=== PATIENT | female | born 1990 | race Caucasian/White ===

== ENCOUNTER → 2017-05-09 | Outpatient (CLI) | payer BC ==
[~2017-05-09] MED LIST: IBP600T1 PO
--- NOTE | 2017-05-09 17:06 | Diagnostic Imaging Report ---
INDICATION: Size and dates. TECHNIQUE: Multiple real-time grayscale images were obtained over the gravid uterus. COMPARISON: None. FINDINGS: Variable positioning of a saunders viable IUP is demonstrated. The biometrical measurements are congruent and correlate with an average age 20 weeks 6 days, reflecting normal growth from prior. The placenta is fundal with no abruption or previa and the volume of amniotic fluid appeared normal. There was no pathological finding at the anatomical survey however there is limited visualization of the four-chambered heart. IMPRESSION: Saunders gestation measures 20 week 6 days in variable position. Fundal placenta with no abruption or previa. Normal appearance of the cervix. No abnormality at the anatomical survey however position limits assessment of the heart. Biometrical measurements are as follows: Biparietal 4.83 cm, age 20 weeks 5 days. Head circumference 18.15 cm, age 20 weeks 4 days. Abdominal circumference 16.63 cm, age 21 weeks 5 days. Femur length 3.19 cm, age 20 weeks 0 days. Sonographic estimate age: 20 weeks 6 days. Sonographic estimated date of delivery: 09/20/2017. Estimated Weight: 380 gm (+/- 56 gm). LMP percentile: 76%. heart rate: 167 beats per minute. number: 1 of 1. Dictated by: Dictated on workstation # [id number]
== END ==
LOC: RAD 16:00
PROVIDERS: ATTEND Obstetrics & Gynecology
DX: Z34.92 Encounter for supervision of normal pregnancy, unspecified, second trimester (principal); Z3A.20 20 weeks gestation of pregnancy
CPT/HCPCS: 76805

== ENCOUNTER → 2017-08-17 | Outpatient (CLI) | payer BC ==
--- NOTE | 2017-08-17 17:58 | Diagnostic Imaging Report ---
Exam: Ultrasound OB limited. Date: 08/17/2017. Indication: 27-year-old female, discrepancy of size and dates. Comparison: 05/09/2017. Findings: There is an unremarkable four-chamber view of the heart. heart rate is identified at 129 beats per minute. The amniotic fluid index is measured at 20.5. The stomach is visualized. The placenta is anterior and without demonstrated previa. The cervical length is measured at 4.4 cm. Biometrical measurements are as follows: Biparietal 9.22 cm, age 37 weeks 4 days. Head circumference 32.97 cm, age 37 weeks 4 days. Abdominal circumference 32.18 cm, age 36 weeks 1 days. Femur length 6.51 cm, age 33 weeks 4 days. Sonographic estimate age: 36 weeks 2 days. Sonographic estimated date of delivery: 09/12/2017. Estimated Weight: 2755 gm (+/- 402 gm). LMP percentile: 79%. heart rate: 129 beats per minute. number: 1 of 1. IMPRESSION: 1. Single living intrauterine with measurements as above. 2. Normal amniotic fluid index. 3. Unremarkable four-chamber view of the heart. The stomach is visualized. There is otherwise limited assessment of anatomy. Dictated by: Dictated on workstation # [id number]
== END ==
LOC: RAD 16:56
PROVIDERS: ATTEND Obstetrics & Gynecology
DX: Z36.2 Encounter for other antenatal screening follow-up (principal); O26.843 Uterine size-date discrepancy, third trimester; Z3A.36 36 weeks gestation of pregnancy
CPT/HCPCS: 76816

== ENCOUNTER 2017-10-02 11:56 | Inpatient (IN) | payer BC ==
[2017-10-02] VITALS (13 sets, daily range): BP systolic 119–151; BP diastolic 74–94
[~2017-10-02] VITALS: Ht 165.1 cm; Wt 95.8 kg
[2017-10-02] MEDS ORDERED: BUTORPHANOL INJ 2 MG/ML (STADOL) VIAL IV ONE (12:30)
[2017-10-02] MEDS ORDERED: D5 LR IV SOLUTION 1,000 ML IV SCH ×2 (12:32→13:50)
[2017-10-02] MEDS ORDERED: LIDOCAINE/EPI 2% 1:200,00 (XYLOCAINE) 10 ML VIAL ONE (12:35)
[2017-10-02] MEDS ORDERED: OXYTOCIN/NORMAL SALINE 500 ML IV ONE (12:35)
[2017-10-02 12:43] LABS: BASOPHILS % (AUTO) 0 % (0-10); EOSINOPHILS % (AUTO) 0 % (0-10); HEMATOCRIT 35 % (35-52); HEMOGLOBIN 12.5 G/DL (11.5-16.0); LYMPHOCYTES # (AUTO) 1.7 X 10^3 (1.0-4.0); LYMPHOCYTES % (AUTO) 9 % (12-44); MEAN CORPUSCULAR HEMOGLOBIN 33 PG (25-34); MEAN CORPUSCULAR HGB CONC 35 G/DL (32-36); MEAN CORPUSCULAR VOLUME 92 FL (80-99); MEAN PLATELET VOLUME 10.6 FL (7.4-10.4); MONOCYTES # (AUTO) 1.1 X 10^3 (0.0-1.0); MONOCYTES % (AUTO) 6 % (0-12); NEUTROPHILS # (AUTO) 15.4 X 10^3 (1.8-7.8); NEUTROPHILS % (AUTO) 85 % (42-75); PLATELET COUNT 162 10^3/uL (130-400); RED BLOOD COUNT 3.83 10^6/uL (4.35-5.85); RED CELL DISTRIBUTION WIDTH 13.9 % (10.0-14.5); WHITE BLOOD COUNT 18.2 10^3/uL (4.3-11.0)
--- OUTSIDE RECORDS SUMMARY | 2017-10-02 12:48 | XMS REPORT ---
Author Author Joaquín Barron [facility] Address [address] [place], [place] [id number] Care Team Providers Care Brisket Puller Name Role Phone Joaquín Barron PCP Allergies and Adverse Reactions Name Reaction Notes NO KNOWN DRUG ALLERGIES Plan of Treatment Not available. Medications Active Name Start Date Estimated Completion Date SIG Comments TriNessa (28) 0.18/0.215/0.25 mg-35 mcg (28) oral tablet take 1 tablet by oral route once daily Name Start Date Expiration Date SIG Comments Zithromax Z-Jimy 250 mg oral tablet 04/12/2014 04/17/2014 take 2 tablets ( 500 mg) by oral route once daily for 1 day then 1 tablet (250 mg) by oral route once daily for 4 days Zofran ODT 4 mg oral tablet,disintegrating 03/10/2016 03/13/2016 dissolve 1 tablet by oral route every 8 hours for 3 days Discontinued Name Start Date Discontinued Date SIG Comments albuterol sulfate 90 mcg/actuation inhalation HFA aerosol inhaler 04/12/2014 03/10/2016 inhale 1 - 2 puffs by inhalation route every 4-6 hours as needed Tessalon Perles 100 mg oral capsule 04/12/2014 03/10/2016 take 1 capsule ( 100 mg) by oral route every 4 hours as needed Problem List Not available. Vital Signs Date Time BP-Sys(mm[Hg] BP-Myriam(mm[Hg]) HR(bpm) RR(rpm) Temp WT HT HC BMI BSA BMI Percentile O2 Sat(%) 03/10/2016 5:50:00 PM 126 mmHg 66 mmHg 78 bpm 18 rpm 98.3 F 173.375 lbs 65 in 28.85 kg/m2 1.90 m2 98 % 04/12/2014 5:22:00 PM 115 mmHg 80 mmHg 96 bpm 18 rpm 99 F 165.375 lbs 97 % Social History Name Description Comments Tobacco Never smoker History of Procedures Date Ordered Description Order Status 03/10/2016 12:00 AM COMPLETE CBC W/AUTO DIFF WBC Returned 03/10/2016 12:00 AM COMPREHEN METABOLIC PANEL Returned 03/10/2016 12:00 AM ASSAY OF AMYLASE Returned 03/10/2016 12:00 AM ASSAY OF LIPASE Returned 03/10/2016 12:00 AM CHORIONIC GONADOTROPIN ASSAY Returned 03/11/2016 12:00 AM ECHO EXAM OF ABDOMEN Returned Results Summary Data and Description Results 03/10/2016 6:30 PM WBC 7.6 RBC 4.46 HGB 13.70 g/dLHCT 39.90 %MCV 90.0 fLMCH 30.70 pgMCHC 34.30 g/dLRDW CV 12.30 %MPV 10.0 fLPLT 260 %NEUT 55.20 %%LYMP 35.30 %%MONO 6.90 %%EOS 1.60 %%BASO 0.90 %#NEUT 4.21 #LYMP 2.69 #MONO 0.53 #EOS 0.12 #BASO 0.07 GLUCOSE 87.0 mg/dLSODIUM 140.0 mmol/LPOTASSIUM 3.70 mmol/ LCHLORIDE 106.0 mmol/LCO2 23.0 mmol/LBUN 11.0 mg/dLCREATININE 0.90 mg/dLSGOT/ AST 22.0 IU/LSGPT/ALT 20.0 IU/LALK PHOS 67.0 IU/LTOTAL PROTEIN 7.50 g/dLALBUMIN 4.50 g/dLTOTAL BILI 0.40 mg/dLCALCIUM 9.70 mg/dLeGFR >60 mL/min/1.73mLIPASE 34.0 U/LAMYLASE 62 IU/L History Of Immunizations Not available. History of Past Illness Name Date of Onset Comments *No known medical problems URI (upper respiratory infection) Apr 12 2014 5:24PM RUQ pain Mar 10 2016 5:52PM Right upper quadrant abdominal pain Mar 11 2016 1:03PM Payers Insurance Name Company Name Plan Name Plan Number Policy Number Policy Group Number [id number] N/A History of Encounters Visit Date Visit Type Provider 03/10/2016 Office visit Joaquín Barron APRN 04/12/2014 Office visit Davidson Mckinnon PA-C
--- OUTSIDE RECORDS SUMMARY | 2017-10-02 12:49 | XMS REPORT ---
Author Roxanna Erazo [facility] Address [address] [place], [place] [id number] Care Team Providers Care Wheel Filler Name Role Phone Roxanna Zimmer PCP Unavailable Allergies and Adverse Reactions Name Reaction Notes NO KNOWN DRUG ALLERGIES Plan of Treatment Planned Activity Comments Planned Date Planned Time Plan/Goal Gallbladder Medications Active Name Start Date Estimated Completion [...] HC BMI BSA BMI Percentile O2 Sat(%) 03/18/2016 10:47:00 AM 126 mmHg 72 mmHg 72 bpm 18 rpm 97.8 F 175.125 lbs 65 in 29.14 kg/m2 1.91 m2 97 % 03/10/2016 5:50:00 PM 126 mmHg 66 mmHg 78 bpm 18 rpm 98.3 F 173.375 lbs 65 in 28.8508 kg/m 1.8991 m 98 % 04/12/2014 5:22:00 PM 115 mmHg [...] quadrant abdominal pain Mar 11 2016 1:03PM Calculus of gallbladder without cholecystitis without obstruction Mar 18 2016 10:48AM Payers Insurance Name Company Name Plan Name Plan Number Policy Number Policy Group Number Start Date [id number] N/A History of Encounters Visit Date Visit Type Provider 03/18/2016 Office visit Roxanna Zimmer PROJECT MANAGER SENIOR 03/10/2016 Office visit Joaquín Barron PROJECT MANAGER SENIOR 04/12/2014 Office visit Davidson Mckinnon PA-C
--- OUTSIDE RECORDS SUMMARY | 2017-10-02 12:49 | XMS REPORT | Continuity of Care Document ---
Author Author [facility] Organization [facility] Address Unknown Phone Unavailable Allergies Active Description Code Type Severity Reaction Onset Reported/Identified Relationship to Patient Clinical Status Yes No Known Drug Allergies [id number] Drug Allergy Unknown N/A 05/19/2010 Medications There is no data. Problems Date Dx Coded Attending Type Code Diagnosis Diagnosed By 05/31/2012 Ot 008.8 VIRAL ENTERITIS NOS 05/31/2012 Ot 647.81 INFECT DIS NEC-DELIVERED 05/31/2012 Ot 648.91 OTH CURR COND-DELIVERED 05/31/2012 Ot 663.31 CORD ENTANGLE NEC-DELIV 05/31/2012 Ot 664.01 DEL W 1 DEG LACERAT-DEL 05/31/2012 Ot V02.51 GROUP B STREPT CARRIER/SUSPECTED CARRIER 05/31/2012 Ot V27.0 DELIVER- SINGLE LIVEBORN 05/19/2017 GINGER BATISTA DO Ot Z34.92 ENCNTR FOR SUPRVSN OF NORMAL PREG, UNSP, 05/19/2017 GINGER BATISTA DO Ot Z3A.20 20 WEEKS GESTATION OF 08/18/2017 GINGER BATISTA DO Ot O26.843 UTERINE SIZE-DATE DISCREPANCY, THIRD TRI 08/18/2017 GINGER BATISTA DO Ot Z36.2 ENCOUNTER FOR OTHER SCREENING 08/18/2017 GINGER BATISTA DO Ot Z3A.36 36 WEEKS GESTATION OF 09/14/2017 GINGER BATISTA DO Ot O26.843 UTERINE SIZE-DATE DISCREPANCY, THIRD TRI 09/14/2017 GINGER BATISTA DO Ot Z36.2 ENCOUNTER FOR OTHER SCREENING 09/14/2017 GINGER BATISTA DO Ot Z3A.36 36 WEEKS GESTATION OF 09/30/2017 GINGER BATISTA DO Ot Z34.92 ENCNTR FOR SUPRVSN OF NORMAL PREG, UNSP, 09/30/2017 GINGER BATISTA DO Ot Z3A.20 20 WEEKS GESTATION OF 09/30/2017 GINGER BATISTA DO Ot O26.843 UTERINE SIZE-DATE DISCREPANCY, THIRD TRI 09/30/2017 GINGER BATISTA DO Ot Z36.2 ENCOUNTER FOR OTHER SCREENING 09/30/2017 GINGER BATISTA DO Ot Z3A.36 36 WEEKS GESTATION OF Procedures Code Description Performed By Performed On 75.69 REPAIR OB LACERATION NEC 05/29/2012 Results There is no data. Encounters ACCT No. Visit Date/Time Discharge Status Pt. Type Provider Facility Loc./Unit Complaint [id number] 04/15/2016 14:19:53 04/15/2016 23:59:59 CLS Outpatient Colt Lopez [id number] 04/13/2016 11:55:51 04/13/2016 23:59:59 CLS Outpatient Colt Lopez [id number] 03/22/2016 11:12:12 03/22/2016 23:59:59 CLS Outpatient Colt Lopez [id number] 03/18/2016 11:39:17 03/18/2016 23:59:59 CLS Outpatient Roxanna Zimmer [id number] 03/10/2016 18:50:31 03/10/2016 23:59:59 CLS Outpatient Joaquín Barron [id number] 04/12/2014 18:24:58 04/12/2014 23:59:59 CLS Outpatient Davidson Mckinnon [id number] 08/17/2017 16:56:00 08/17/2017 23:59:59 CLS Outpatient GINGER BATISTA DO [facility] RAD O26.849 DISCREPANCY BETWEEN SIZE AND DATES [id number] 05/09/2017 16:00:00 05/09/2017 23:59:59 CLS Outpatient GINGER BATISTA DO [facility] RAD SURVEY [id number] 10/03/2017 20:00:00 PEN Preadmit GINGER BATISTA DO INDUCTION [id number] 05/29/2012 06:06:00 Document Registration
--- OUTSIDE RECORDS SUMMARY | 2017-10-02 12:49 | XMS REPORT | CCD ---
Author Author CANDACE POE Organization Unknown Address [address] [place] [address] Care Team Providers Care World Travel Counselor Name Role Phone SALINA SALMERON, DYLON Payan Attphys Allergies Allergy Code Allergy Type Reaction Status No Known Drug Allergies 0 Drug allergy Active Active Medications No Active Medications Problems Unknown or Not Available. Procedures Procedure Code Procedure Type Date Laparoscopy, surgical; cholecystectomy with cholangiography 51914 CPT 04/02/2016 OPERATIVE CHOLANGIOGRAM 48863466 SNOMED CT 04/02/2016 PATHOLOGY ORDER [id number] SNOMED CT 04/02/2016 TEST URINE [id number] SNOMED CT 04/02/2016 Results TEST URINE - Collect Date/Time: 04/02/2016 11:30 Test Name Code Test Result Test Units Test Ref Range TEST UR 2106-3 NEGATIVE N/A Function Status Unknown or Not Available. History of Immunizations Unknown or Not Available. Plan of Treatment Unknown or Not Available. Social History Smoking Status Code Start Date End Date Never smoker [id number] Vital Signs Vital Sign Value Unit Date/Time Recent/Initial? Weight Measured 168 [lb_av] 04/01/2016 08:56 Initial VS Height 65 [in_i] 04/01/2016 08:56 Initial VS BMI (Body Mass Index) 27.96 kg/m2 04/01/2016 08:56 Initial VS BSA (Body Surface Area) 1.87 m2 04/01/2016 08:56 Initial VS Respiratory Rate 16 /min 04/02/2016 14:45 Initial VS Heart Rate 95 /min 04/02/2016 14:45 Initial VS O2 % BldC Oximetry 100 % 04/02/2016 14:45 Initial VS BP Systolic 128 mm[Hg] 04/02/2016 14:53 Initial VS BP Diastolic 80 mm[Hg] 04/02/2016 14:53 Initial VS BP Systolic 114 mm[Hg] 04/02/2016 15:14 Most Recent VS BP Diastolic 71 mm[Hg] 04/02/2016 15:14 Most Recent VS Respiratory Rate 13 /min 04/02/2016 15:14 Most Recent VS Heart Rate 84 /min 04/02/2016 15:14 Most Recent VS O2 % BldC Oximetry 99 % 04/02/2016 15:14 Most Recent VS Function Status Unknown or Not Available. Goals Unknown or Not Available. ASSESSMENTS Unknown or Not Available. Health Concerns Section Unknown or Not Available.
--- OUTSIDE RECORDS SUMMARY | 2017-10-02 12:49 | XMS REPORT ---
Author Author Joaquín Barron [facility] Address [address] [place], [place] [address] Care Team Providers Care Strategic Debriefing Specialist Name Role Phone Joaquín Barron PCP Allergies and Adverse Reactions Name Reaction Notes NO KNOWN DRUG ALLERGIES Plan of Treatment Planned Activity Comments Planned Date Planned Time Plan/Goal ECHO EXAM OF ABDOMEN 03/11/2016 12:00 AM Medications Active Name Start Date Estimated Completion Date SIG Comments TriNessa (28) 0.18/0.215/0.25 mg-35 mcg (28) oral tablet take 1 tablet by oral route once daily Zofran ODT 4 mg oral tablet,disintegrating 03/10/2016 03/13/2016 dissolve 1 tablet by oral route every 8 hours for 3 days Name Start Date Expiration Date SIG Comments Zithromax Z-Jimy 250 mg oral tablet 04/12/2014 04/17/2014 take 2 tablets ( 500 mg) by oral route once daily for 1 day then 1 tablet (250 mg) by oral route once daily for 4 days Discontinued Name Start Date Discontinued Date [...] 03/10/2016 12:00 AM CHORIONIC GONADOTROPIN ASSAY Returned Results Summary Data and Description Results [...] Policy Number Policy Group Number [id number]A History of Encounters Visit Date Visit Type Provider 03/10/2016 Office visit Joaquín Barron APRN 04/12/2014 Office visit Davidson Mckinnon PA-C
--- OUTSIDE RECORDS SUMMARY | 2017-10-02 12:49 | XMS REPORT ---
Author Roxanna Erazo [facility] Address [address] [place], [place] [phone] Care Team Providers Care Dot Compliance Specialist Name Role Phone Roxanna Zimmer PCP Unavailable [...] of Procedures Date Ordered Description Order Status 03/11/2016 12:00 AM ECHO EXAM OF ABDOMEN Returned 03/10/2016 12:00 AM COMPLETE CBC W/AUTO DIFF [...] cholecystitis without obstruction Mar 18 2016 10:48AM Nausea Mar 10 2016 5:52PM Payers Insurance Name Company Name Plan Name Plan Number Policy Number Policy Group Number Start Date [id number] N/A History of Encounters Visit Date Visit Type Provider 03/18/2016 Office visit Roxanna Zimmer HOUSE REPAIRER 03/10/2016 Office visit Joaquín Barron HOUSE REPAIRER 04/12/2014 Office visit Davidson Mckinnon PA-C
--- OUTSIDE RECORDS SUMMARY | 2017-10-02 12:49 | XMS REPORT ---
Author Colt Luevano [facility] Address [address] [place], [place] [address] Care Team Providers Care Cosmetic Surgeon Name Role Phone Colt Lopez PCP Unavailable Allergies and Adverse Reactions Name Reaction Notes NO KNOWN DRUG ALLERGIES Plan of Treatment Planned Activity Comments Planned Date Planned Time Plan/Goal COMPREHEN METABOLIC PANEL 04/02/2016 12:00 AM COMPLETE CBC W/AUTO DIFF WBC 04/02/2016 12:00 AM Gallbladder Medications Active Name Start Date Estimated [...] HC BMI BSA BMI Percentile O2 Sat(%) 03/22/2016 10:47:00 AM 124 mmHg 86 mmHg 83 bpm 16 rpm 96.6 F 174 lbs 65 in 28.95 kg/m2 1.90 m2 98 % 03/18/2016 10:47:00 AM 126 mmHg 72 mmHg 72 bpm 18 rpm 97.8 F 175.125 lbs 65 in 29.142 kg/m 1.9087 m 97 % 03/10/2016 5:50:00 PM 126 mmHg [...] 2016 10:48AM Nausea Mar 10 2016 5:52PM Cholelithiasis Mar 22 2016 10:47AM Chronic Cholecystitis Mar 22 2016 10:47AM Payers Insurance Name Company Name Plan Name Plan Number Policy Number Policy Group Number Start Date BCBS [facility] [id number] N/A History of Encounters Visit Date Visit Type Provider 03/22/2016 Office visit 03/22/2016 Office visit 03/22/2016 Office visit Colt Lopez MD 03/18/2016 Office visit Roxanna Zimmer APRN 03/10/2016 Office visit Joaquín Barron APRN 04/12/2014 Office visit Davidson Mckinnon PA-C
--- OUTSIDE RECORDS SUMMARY | 2017-10-02 12:49 | XMS REPORT ---
Author Author Joaquín Barron [facility] Address [address] [place], [place] [address] Care Team Providers Care Wet Process Head Miller Name Role Phone Joaquín Barron PCP Allergies [...] Policy Number Policy Group Number [id number] N/A History of Encounters Visit Date Visit Type Provider 03/10/2016 Office visit Joaquín Barron APRN 04/12/2014 Office visit Davidson Mckinnon PA-C
--- OUTSIDE RECORDS SUMMARY | 2017-10-02 12:49 | XMS REPORT ---
Author Colt Luevano [facility] Address [address] [place], [place] [address] Care Team Providers Care Cesspool Cleaner Name Role Phone Colt Lopez PCP Unavailable [...] mg/dLeGFR >60 mL/min/1.73mLIPASE 34.0 U/LAMYLASE 62 IU/L 04/02/2016 11:30 AM TEST UR NEGATIVE History Of Immunizations Not available. History of [...] 10:47AM Chronic Cholecystitis Mar 22 2016 10:47AM Postoperative Follow-up: Cholecystectomy Apr 13 2016 11:32AM Payers Insurance Name Company Name Plan Name Plan Number Policy Number Policy Group Number [id number] N/A History of Encounters Visit Date Visit Type Provider 04/13/2016 Office visit Colt Lopez MD 04/02/2016 [facility] Colt Lopez MD 03/22/2016 Office visit 03/22/2016 Office visit 03/22/2016 Office visit Colt Lopez MD 03/18/2016 Office visit Roxanna Zimmer APRN 03/10/2016 Office visit Joaquín Barron APRN 04/12/2014 Office visit Davidson Mckinnon PA-C
[2017-10-02] MEDS ORDERED: KETOROLAC 30 MG/ML VIAL ONE (13:32)
[2017-10-02] MEDS: KETOROLAC 30 MG/ML VIAL IV SCH ×2 (13:36→20:04)
[2017-10-02] MEDS ORDERED: OXYTOCIN/NORMAL SALINE 500 ML IV SCH (13:51)
--- NOTE | 2017-10-02 13:58 | History & Physical ---
History and Physical Date Seen by Provider: Oct 02, 2017 Time Seen by Provider: 13:53 This patient is a 27-year-old white female patient of Dr. Cunningham with an EDC of September 24, 2017. She presented in active labor at 7 cm dilated and at greater than 41 weeks gestation. She labored quite rapidly and has already delivered. She's had no problems with this . She denied rupture membranes or bleeding. Her GBS culture was negative. She understood the Dr. Cunningham was out of town this weekend. Allergies are none Medications are vitamins S medical history/past surgical history/past obstetric history/family history and social histories are per Dr. Cunningham's antepartum record HEENT exam is normal Neck is supple no lymphadenopathy no thyromegaly Abdomen is gravid soft nontender nondistended on admission. Extreme show no clubbing cyanosis there is no Homans sign. On admission the patient was immune dilated 80 or 90 percent effaced and 0 station vertex presentation that is of the membranes was unknown. On my exam with the patient feeling the urge to push she was completely dilated there were no membranes present. Presenting part was at the 0 station and was ROP. Patient has subsequently delivered and sent you may see the delivery note. Laboratory Tests Test 10/02/17 12:20 Range/Units White Blood Count 18.2 H 4.3-11.0 10^3/uL Red Blood Count 3.83 L 4.35-5.85 10^6/uL Hemoglobin 12.5 11.5-16.0 G/DL Hematocrit 35 35-52 % Mean Corpuscular Volume 92 80-99 FL Mean Corpuscular Hemoglobin 33 25-34 PG Mean Corpuscular Hemoglobin Concent 35 32-36 G/DL Red Cell Distribution Width 13.9 10.0-14.5 % Platelet Count 162 130-400 10^3/uL Mean Platelet Volume 10.6 H 7.4-10.4 FL Neutrophils (%) (Auto) 85 H 42-75 % Lymphocytes (%) (Auto) 9 L 12-44 % Monocytes (%) (Auto) 6 0-12 % Eosinophils (%) (Auto) 0 0-10 % Basophils (%) (Auto) 0 0-10 % Neutrophils # (Auto) 15.4 H 1.8-7.8 X 10^3 Lymphocytes # (Auto) 1.7 1.0-4.0 X 10^3 Monocytes # (Auto) 1.1 H 0.0-1.0 X 10^3 Eosinophils # (Auto) 0.0 0.0-0.3 10^3/uL Basophils # (Auto) 0.0 0.0-0.1 10^3/uL Assessment and plan term at 41+ weeks' gestation in active labor with delivery relatively eminent. Patient has already delivered. Management was expectant with preparation for the delivery 41+ week admitted in active labor Allergies and Home Medications Allergies Coded Allergies: No Known Drug Allergies (Unverified , 05/19/10) Home Medications Ibuprofen 600 Mg Tab, 600 MG PO Q6HR PRN, (Reported) Patient Home Medication List Home Medication List Reviewed: KATHERINE Kirby MD Oct 02, 2017 1:58 pm
[2017-10-02 14:00] LABS: BAND NEUTROPHILS 0 %; BASOPHILS % (MANUAL) 0 %; EOSINOPHILS % (MANUAL) 0 %; LYMPHOCYTES % (MANUAL) 7 %; MONOCYTES % (MANUAL) 4 %; NEUTROPHILS % (MANUAL) 89 %
[2017-10-02] MEDS ORDERED: BENZOCAINE/MENTHOL (DERMOPLAST) 56 ML CAN TP PRN (14:00)
[2017-10-02] MEDS ORDERED: oxyCODONE/APAP 10/325MG (PERCOCET 10) TABLET PO PRN (14:00)
[2017-10-02] MEDS: CATHETER FLUSH 10 ML SYR IV SCH (14:00)
[2017-10-02] MEDS ORDERED: ONDANSETRON 4 MG/2 ML (SDV) Z0FRAN IVP PRN (14:00)
[2017-10-02] MEDS ORDERED: MEASLES,MUMPS,RUBELLA 1 EA INJ SC ONE (14:00)
[2017-10-02] MEDS ORDERED: TETANUS,DIPTH,PERTUSS P/F (BOOSTRIX) 0.5 ML VIAL IM ONE (14:00)
[2017-10-02 14:01] LABS: RBC MORPH NORMAL
--- NOTE | 2017-10-02 14:08 | OPERATIVE REPORT ---
DATE OF SERVICE: 10/02/2017 DELIVERY NOTE The patient was delivered by term spontaneous vaginal delivery, a viable male with Apgars of 8 and 9 at one and five minutes respectively, a weight of 8 pounds 15 ounces, a cord blood pH of 7.22 and a time of 1325 hours. The patient delivered over a second-degree perineal laceration under local analgesia in the perineal body. The was bulb suctioned on delivery of the head and again on completion of delivery. Umbilical cord was doubly clamped. The patient's mother cut the cord and the baby was passed to mom's abdomen. Cord bloods were obtained. The placenta was delivered spontaneously Gregory. It was normal with a 3-vessel cord. The cervix, vagina, rectum and perineum were examined and found intact, except for a second-degree perineal laceration that was repaired under local analgesia with a single suture of 3-0 Vicryl Rapide to good hemostasis and good reapproximation. The patient tolerated delivery and the repair well and remained in the LDR for recovery. The baby remained with the mom. Sponge and needle counts were correct. Estimated blood loss was around 300 mL. Job ID: [id number] DocumentID: [id number] Dictated Date: 10/02/2017 13:48:10 Wreath Machine Operator Date: 10/02/2017 14:07:52 Dictated By: KATHERINE FREEMAN MD
[2017-10-02] MEDS ORDERED: PREN1TAB86 PO (15:52)
[2017-10-02] MEDS ORDERED: FERR-84 PO (15:52)
[2017-10-02] MEDS: DOCUSATE SODIUM 100 MG (COLACE) CAP PO SCH (20:04)
[2017-10-03 01:30] VITALS: BP 135/88
[2017-10-03] MEDS: KETOROLAC 30 MG/ML VIAL IV SCH (01:32)
[2017-10-03 04:50] VITALS: BP 104/69
[2017-10-03] MEDS: CATHETER FLUSH 10 ML SYR IV SCH ×2 (05:04→06:07)
--- NOTE | 2017-10-03 07:53 | Progress Note-Standard ---
Standard Progress Note Progress Notes/Assess & Plan Date Seen by Provider: Oct 03, 2017 Time Seen by Provider: 07:53 Progress/Assessment & Plan This patient is without complaint. She is ambulating, voiding, tolerating by mouth well, has good pain control, is requesting discharge home. Vital Signs Date Time Temp Pulse Resp B/P (MAP) Pulse Ox O2 Delivery O2 Flow Rate FiO2 10/03/17 04:50 98.4 80 18 104/69 (81) 98 10/03/17 01:30 98.3 82 18 135/88 (104) 97 10/02/17 20:00 99.1 96 18 128/91 (103) 97 10/02/17 15:48 98.3 89 18 125/92 (103) Room Air 10/02/17 15:33 82 18 126/90 (102) Room Air 10/02/17 15:18 88 18 119/90 (100) Room Air 10/02/17 15:03 80 18 129/88 (102) Room Air 10/02/17 14:48 98.6 85 18 127/77 (94) Room Air 10/02/17 14:33 86 18 124/77 (93) Room Air 10/02/17 14:18 87 18 125/75 (92) Room Air 10/02/17 13:48 98.7 100 18 131/81 (98) Room Air 10/02/17 13:33 91 18 127/76 (93) Room Air 10/02/17 13:30 98.3 10/02/17 13:20 87 18 134/80 (98) Room Air 10/02/17 13:00 98.5 82 18 151/94 (113) Room Air 10/02/17 12:09 98.2 93 18 119/74 (89) Room Air I & O 10/03/17 07:00 Intake Total 650 ml Balance 650 ml Vital signs are stable. Patient is afebrile. Fundus is firm below the umbilicus and nontender. Extremities show no clubbing cyanosis. There is no Homans sign. Assessment and plan day number 1 status post postdates spontaneous vaginal delivery doing well. Plan is for discharge home Final Diagnosis Post dates spontaneous vaginal delivery KATHERINE FREEMAN MD Oct 03, 2017 7:53 am
[2017-10-03] MEDS ORDERED: DOCU100C37 PO (07:55)
[2017-10-03] MEDS ORDERED: OXYC-465 PO (07:55)
[2017-10-03] MEDS ORDERED: IBUP-1780 PO (07:55)
--- NOTE | 2017-10-03 07:56 | Discharge Instructions ---
Discharge Instructions Discharge Medications New, Converted or Re-Newed RX: RX on Chart Patient Instructions Patient Instructions: As directed Return to The Hospital For: As directed Activity & Diet Discharge Diet: No Restrictions Activity as Tolerated: No Orders-Post D/C & Referrals Follow Up Appt: Call to make follow up appt. with Dr. Cunningham for patient in 6 weeks. Activity Per routine post vaginal delivery instructions. Diet as tolerated Patient may shower or tub bathe as desired. KATHERINE FREEMAN MD Oct 03, 2017 7:56 am
[2017-10-03] MEDS ORDERED: IBUPROFEN 800 MG (MOTRIN) TAB PO ONE (08:16)
[2017-10-03 08:23] VITALS: BP 134/80
[2017-10-03] MEDS: IBUPROFEN 800 MG (MOTRIN) TAB PO SCH ×2 (08:24→16:06)
[2017-10-03] MEDS: DOCUSATE SODIUM 100 MG (COLACE) CAP PO SCH (08:24)
[2017-10-03] MEDS ORDERED: TETANUS,DIPTH,PERTUSS P/F (BOOSTRIX) 0.5 ML VIAL IM ONE (15:56)
[2017-10-03 16:05] VITALS: BP 115/82
== END 2017-10-03 16:45 | disposition home or self-care (01) | DRG 775 ==
LOC: WSo 11:56 → LDRP 11:57 → WSo 12:45 → LDRP 12:46
PROVIDERS: ADMIT Obstetrics & Gynecology; ATTEND Obstetrics & Gynecology
PROC: 10E0XZZ Delivery of Products of Conception, External Approach (ICD-10-PCS; principal; 2017-10-02)
PROC: 0KQM0ZZ Repair Perineum Muscle, Open Approach (ICD-10-PCS; 2017-10-02)
DX: O48.0 Post-term pregnancy (principal); O70.1 Second degree perineal laceration during delivery; Z3A.41 41 weeks gestation of pregnancy; Z37.0 Single live birth; Z23 Encounter for immunization
CPT/HCPCS: 36415; 85007; 85027; 86850; 86900; 86901; 88307; 90715; 99212